=== PATIENT | male | born 1970 | race Caucasian/White ===

== ENCOUNTER 2019-05-11 12:16 | Outpatient (CLI) | payer OTHER, SELFPAY ==
--- NOTE | ~2019-05-11 | XR_ITS ---
EXAMINATION: XR shoulder RT min 2V DATE: 05/11/2019 12:39 INDICATION: Right shoulder pain. TECHNIQUE: 4 views of right shoulder were obtained. COMPARISON: None. FINDINGS: Bone alignment is normal. No fracture. Joint spaces are well maintained. IMPRESSION: 1. Normal right shoulder. Reviewed, dictated and finalized at location A. ONOMY DEPARTMENT CHAIR IMPRESSION: 1. Normal right shoulder.
== END 2019-05-11 12:17 | disposition home or self-care (01) ==
LOC: CHSIMG 12:21
PROVIDERS: PCP Internal Medicine; Visit Provider Internal Medicine
DX: M25.511 Pain in right shoulder (principal)
CPT/HCPCS: 73030

== ENCOUNTER 2019-05-16 16:53 | Outpatient (RCR) | payer OTHER, SELFPAY ==
--- NOTE | 2019-05-16 17:46 | PTOPEVAL ---
Thank you for referring this patient to [facility]. Please review, sign, date and return this plan of care JASE. I agree with and certify that the following plan of care is medically necessary. Referring Physician Date Admitting Provider: Attending Provider: Brandin Donald MD Referring Provider: *PT Outpatient Evaluation Start: 05/16/19 17:04 Freq: Status: Active Protocol: Document 05/16/19 17:04 LIA (Rec: 05/16/19 17:45 [email or web address]) Therapy Assessment Status Assessment Status Assessment Status Evaluation Evaluation Information Problem Diagnosis right shoulder pain Onset 05/06/19 Subjective Information Pt. reports that he woke on Text:As Reported By Patient with right shoulder pain. Family He recalls no specific incident. He describes initial pain in the shoulder blade. He reports that he saw doctor 3-4 days after pain onset. He states that he did take steroids which have helped to reduce pain. He describes no numbness or tingling. He states that reaching overhead is the most difficult task. He reports that pain is eased with keeping his arm close to his body. he reports that his goal is to decrease his right shoulder pain. Diagnostic Tests X-Rays For This Problem Yes Prior Level of Function Activity Level (Last 3 Months) Occupation journeyman electrician pv installer Hand Dominance Right Activity of Daily Living Ability Independent Indoor/Home Mobility Independent Community Mobility Independent Stairs Ability Independent Functional Cognition (Planning, Shopping Independent , Taking Medications) Cooking Yes Cleaning Yes Laundry Yes Shopping Yes Driving Yes Pain Assessment Pain Scale Pain Scale Used Numeric (1 - 10) Self Report Pain Assessment Right Shoulder(s) Reported Pain Level 3 Pain Description Aching Pain Frequency Continuous Current Pain Intensity 3 Lowest Pain Intensity 2 Greatest Pain Intensity 9 Pain Score Pain Score 3: Se
== END 2019-06-09 13:31 | disposition home or self-care (01) ==
LOC: CHSPT 16:53
PROVIDERS: PCP Internal Medicine; Visit Provider Internal Medicine
DX: M25.511 Pain in right shoulder (principal)
CPT/HCPCS: 97014; 97110; 97140; 97161; G0283

== ENCOUNTER 2019-11-18 11:48 | Outpatient (CLI) | payer OTHER, SELFPAY ==
--- NOTE | ~2019-11-18 | XR_ITS ---
XR lumbar spine 2-3V DATE: 11/18/2019 12:12 INDICATION: Lumbosacral radiculopathy for 3 months TECHNIQUE: AP, lateral, coned lateral lumbosacral views COMPARISON: None FINDINGS: There is mild dextroscoliosis of the thoracolumbar spine. Moderate osteopenia is suggested. No fracture or bone destruction. The included T10-L5 pedicles are intact. There is mild to moderate d egenerative disc disease of the lumbar spine, with moderately severe degenerative disc disease at L5- S1. The sacroiliac joints are intact. IMPRESSION: Multilevel degenerative disc disease Moderate osteopenia Reviewed, dictated and finalized at location A.
== END 2019-11-18 11:49 | disposition home or self-care (01) ==
LOC: CHSIMG 11:52
PROVIDERS: PCP Internal Medicine; Visit Provider Internal Medicine
DX: M54.17 Radiculopathy, lumbosacral region (principal)
CPT/HCPCS: 72100

== ENCOUNTER 2019-11-25 09:05 | Outpatient (RCR) | payer OTHER, SELFPAY ==
--- NOTE | 2019-11-25 10:27 | PTOPEVAL ---
Thank you for referring Irseal Teresa to [facility].? The patient is scheduled to be seen for therapy? __2__x/week for __6_ weeks. Please review, sign, date and return this plan of care JASE. I agree with and certify that the following plan of care is medically necessary. Referring Physician Date Admitting Provider: Attending Provider: Brandin Donald MD Referring Provider: *PT Outpatient Evaluation Start: 11/25/19 09:13 Freq: Status: Active Protocol: Document 11/25/19 09:13 LIA (Rec: 11/25/19 09:57 [email or web address]) Therapy Assessment Status Assessment Status Assessment Status Evaluation Evaluation Information Problem Diagnosis low back pain Onset 08/22/19 Additional Evaluation Detail Oswestry 58% limitation Subjective Information Pt. reports long hx of on/off Query Text:As Reported By Patient/ back pain. He states that he Family had a bout that began with pain in the leg, around August. He describes current pain at the left buttock and into the left calf. He reports that he is starting to have trouble with sleeping at night. 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 He states that his job has changed and states that he has been doing more computer work. He attempted a steroid pack, with very little improvement. He states that he has not been very active as of recently due to pain. He reports that his goal is to reduce his low back pain. Diagnostic Tests X-Rays For This Problem Yes Prior Level of Function Activity Level (Last 3 Months) Occupation electrician helper powerhouse Hand Dominance Right Activity of Daily Living Ability Independent Indoor/Home Mobility Independent Community Mobility Independent Stairs Ability Independent Functional Cognition (Planning, Shopping Independent , Taking Medications) Cooking Yes Cleaning Yes Laundry Yes Shopping Yes Driving Yes Pain Assessment Pain Scale Pain Scale Used
== END 2020-01-06 10:11 | disposition home or self-care (01) ==
LOC: CHSPT 09:05
PROVIDERS: PCP Internal Medicine; Visit Provider Internal Medicine
DX: M54.5 Low back pain (principal)
CPT/HCPCS: 97014; 97110; 97161; G0283

== ENCOUNTER → 2019-12-16 14:49 | Outpatient (CLI) | payer OTHER, SELFPAY ==
--- NOTE | ~2019-12-16 | MR_ITS ---
EXAMINATION: MR lumbar spine wo con EXAM DATE: 12/16/2019 15:36 INDICATION: Low back pain radiating down left leg. TECHNIQUE: Multi-sequential, multiplanar MR images of the lumbar spine were obtained without contrast . Sagittal T1, T2, T2 fat saturation images. Axial T2 weighted images. There is no prior study for comparison. FINDINGS: There is mild lumbar levoscoliosis. Moderate disc disease at L5-S1, mild to moderate at L4- 5 and mild at L3-4. The vertebral bodies are aligned in the AP dimension. Endplate degenerative sig nal changes L5-S1. The vertebral body marrow is otherwise normal in signal intensity. The conus medul cliff terminates at the T12-L1 level and has normal signal intensity and morphology. Paraspinal soft tissue is unremarkable. Level by level evaluation: T12-L1: Disc does not extend beyond the endplate margin. Facet arthropathy: Mild. Neural foraminal stenosis: No stenosis. Central canal stenosis: No stenosis. L1-L2: Disc does not extend beyond the endplate margin. Facet arthropathy: Mild. Neural foraminal stenosis: Mild left. Central canal stenosis: No stenosis. L2-L3: Disc does not extend beyond the endplate margin. Facet arthropathy: Mild. Neural foraminal stenosis: No stenosis. Central canal stenosis: No stenosis. L3-L4: There is a mild diffuse disc bulge. Facet arthropathy: Mild. Neural foraminal stenosis: Mild to moderate right. Central canal stenosis: Minimal. L4-L5: There is a mild to moderate diffuse disc bulge, with superimposed moderate-sized left central protrusion causing mass effect on traversing left L5 nerve root in the lateral recess. Facet arthropathy: Mild . Neural foraminal stenosis: Mild to moderate right, mild left. Central canal stenosis: Mild to moderate, disproportionately left lateral recess. L5-S1: There is a mild to moderate diffuse disc bulge. Facet arthropathy: Mild. Neural foraminal stenosis: Mild to moderate right, mild left. Central canal stenosis: Mild. IMPRESSION: 1. L4-5 left central protrusion causing mass effect on traversing L5 nerve root. Correlate clinicall y for muscle weakness of great toe extension and sensory change of the medial foot and great toe. 2. Moderate disc disease at L5-S1. 3. Otherwise mild lumbar spondylosis. Reviewed, dictated and finalized at location G. IMPRESSION: 1. L4-5 left central protrusion causing mass effect on traversing L5 nerve alpa t. Correlate clinically for muscle weakness of great toe extension and sensory change of the medial foot and great toe. 2. Moderate disc disease at L5-S1. 3. Otherwise mild lumbar spondylosis.
== END ==
PROVIDERS: PCP Internal Medicine; Visit Provider Internal Medicine
DX: M54.5 Low back pain (principal); M51.87 Other intervertebral disc disorders, lumbosacral region; M47.26 Other spondylosis with radiculopathy, lumbar region
CPT/HCPCS: 72148

== ENCOUNTER 2021-11-29 10:31 | Outpatient (CLI) | payer BC, SELFPAY ==
[2021-11-29 10:47] LABS: Hematocrit 42.8 % (40.0-54.0); Hemoglobin 14.8 g/dL (14.0-18.0); Mean Corpuscular HGB Conc 34.6 g/dL (32.0-36.0); Mean Corpuscular Hemoglobin 31.4 pg (27.0-31.0); Mean Corpuscular Volume 90.9 fL (78.0-102.0); Mean Platelet Volume 9.4 fl (8.7-11.0); Platelet Count Result 223 K/mm3 (150-420); Red Blood Count 4.71 M/mm3 (4.70-6.10); Red Cell Distribution Width 11.9 % (11.6-14.4); White Blood Count 3.7 K/mm3 (4.8-10.8)
[2021-11-29 10:49] LABS: Add Urine Microscopic? NO; Appearance Urine Clear (Clear); Bilirubin Urine Negative (Negative); Blood Urine Negative (Negative); Color Urine Light Yellow (Yellow); Glucose Urine UA Negative (Negative); Ketones Urine Negative (Negative); Leukocyte Esterase Ur Negative (Negative); Nitrate Urine Negative (Negative); Protein Urine Negative (Negative); Specific Grav Ur 1.025 (1.010-1.020); Urobilinogen Urine 0.2 mg/dL (0.2-1.0)
[2021-11-29 10:57] LABS: Hemoglobin A1C 5.6 % (<5.7)
[2021-11-29 11:08] LABS: Band Neutrophils Percent 0 % (0-6); Basophils Absolute Manual 0.07 K/mm3 (0-0.1); Basophils Percent Manual 2 % (0-1); Eosinophils Absolute Manual 0.07 K/mm3 (0.02-0.5); Eosinophils Percent Manual 2 % (1-6); Lymphocytes Absolute Manual 1.11 K/mm3 (1.1-4.5); Lymphocytes Percent Manual 30 % (18-44); Monocytes Absolute Manual 0.25 K/mm3 (0.1-0.90); Monocytes Percent Manual 7 % (3-9); Neutrophils Absolute Manual 2.18 K/mm3 (1.3-6.7); Neutrophils Percent Manual 59 % (46-73); Total Cells Counted 100
[2021-11-29 11:09] LABS: Platelet Estimate Adequate (Adequate)
[2021-11-29 11:14] LABS: Alanine Aminotransferase 68 U/L (16-63); Albumin Level 3.9 g/dL (3.4-5.0); Alkaline Phosphatase 58 U/L (46-116); Anion Gap 7 mmol/L (8-16); Aspartate Amino Transferase 35 U/L (15-37); Bilirubin,Total 0.4 mg/dL (0.00-1.00); Blood Urea Nitrogen 15 mg/dL (7-18); Calcium 8.7 mg/dL (8.5-10.1); Carbon Dioxide 30 mmol/L (21-32); Chloride 103 mmol/L (98-108); Cholesterol 174 mg/dL (0-200); Estimated Glomerular Filt Rate > 60; Glucose 107 mg/dL (70-99); HDL Direct 40 mg/dL (40-60); LDL Cholesterol Calculated 104 mg/dL (<130); Osmolality Calculated 290 mOsm/kg (285-295); Potassium 4.5 mmol/L (3.5-5.1); Prostate Specific Antigen 0.7 ng/mL (< OR = 4.0); Sodium 140 mmol/L (136-145); Total Protein 7.3 g/dL (6.4-8.2); Triglycerides 149 mg/dL (0-150)
[2021-12-01 17:50] LABS: Hepatitis A Antibody IgM Nonreactive; Hepatitis B Core Antibody Nonreactive (Nonreactive); Hepatitis B Surface Antigen Nonreactive (Nonreactive); Hepatitis C Signal to Cutoff 0.02 ratio (<1.00); Hepatitis C Virus Antibody Nonreactive (Nonreactive)
== END 2021-11-29 10:32 | disposition home or self-care (01) ==
LOC: CHSLAB 10:35
PROVIDERS: PCP Internal Medicine; Visit Provider Internal Medicine
DX: Z00.00 Encounter for general adult medical examination without abnormal findings (principal); Z12.5 Encounter for screening for malignant neoplasm of prostate; R74.01 Elevation of levels of liver transaminase levels
CPT/HCPCS: 36415; 80053; 80061; 80074; 81003; 83036; 84153; 84443; 85025; G0103

== ENCOUNTER 2021-12-06 08:13 | Outpatient (CLI) | payer BC, SELFPAY ==
--- NOTE | ~2021-12-06 | US_ITS ---
EXAMINATION: US right upper quadrant DATE: 12/06/2021 09:55 INDICATION: Abnormal liver enzymes TECHNIQUE: Multiple grayscale and Doppler ultrasound images of the abdomen were obtained. COMPARISON: None available FINDINGS: Bowel gas obscures visualization of the pancreas. The liver demonstrates increased echogeni city, heterogenous echotexture, and decreased through transmission. No surface nodularity. Normal hep atopetal flow in the main portal vein. The gallbladder is normal with no abnormal wall thickening, pe richolecystic fluid or stones. The normal common bile duct measures 4 mm. IMPRESSION: 1. Diffuse hepatic steatosis Reviewed, dictated and finalized at location A.
== END 2021-12-06 08:14 | disposition home or self-care (01) ==
LOC: CHSIMG 08:15
PROVIDERS: PCP Internal Medicine; Visit Provider Internal Medicine
DX: R94.5 Abnormal results of liver function studies (principal)
CPT/HCPCS: 76705

== ENCOUNTER 2023-04-24 07:41 | Outpatient (CLI) | payer BC, SELFPAY ==
[2023-04-24 07:57] LABS: Hemoglobin 15.1 g/dL (14.0-18.0); Mean Corpuscular HGB Conc 33.6 g/dL (32.0-36.0); Mean Corpuscular Hemoglobin 30.4 pg (27.0-31.0); Mean Corpuscular Volume 90.5 fL (78.0-102.0); Mean Platelet Volume 9.1 fl (8.7-11.0); Platelet Count Result 281 K/mm3 (150-420); Red Blood Count 4.97 M/mm3 (4.70-6.10); Red Cell Distribution Width 11.9 % (11.6-14.4); White Blood Count 3.4 K/mm3 (4.8-10.8)
[2023-04-24 07:58] LABS: Appearance Urine Clear (Clear); Bilirubin Urine Negative (Negative); Blood Urine Negative (Negative); Color Urine Light Yellow (Yellow); Glucose Urine UA Negative (Negative); Ketones Urine Negative (Negative); Leukocyte Esterase Ur Negative (Negative); Nitrate Urine Negative (Negative); Protein Urine Negative (Negative); Specific Grav Ur 1.015 (1.010-1.020); Urobilinogen Urine 0.2 mg/dL (0.2-1.0); pH Urine 6.5 (5.0-8.0)
[2023-04-24 08:38] LABS: Add Urine Microscopic? NO
[2023-04-24 08:54] LABS: Alanine Aminotransferase 62 U/L (16-63); Albumin Level 3.8 g/dL (3.4-5.0); Alkaline Phosphatase 64 U/L (46-116); Anion Gap 8 mmol/L (8-16); Aspartate Amino Transferase 32 U/L (15-37); Bilirubin,Total 0.4 mg/dL (0.00-1.00); Blood Urea Nitrogen 16 mg/dL (7-18); Calcium 8.8 mg/dL (8.5-10.1); Carbon Dioxide 31 mmol/L (21-32); Chloride 102 mmol/L (98-108); Cholesterol 194 mg/dL (0-200); Estimated Glomerular Filt Rate > 60; Glucose 122 mg/dL (70-99); HDL Direct 38 mg/dL (40-60); LDL Cholesterol Calculated 129 mg/dL (<130); Osmolality Calculated 294 mOsm/kg (285-295); Potassium 4.3 mmol/L (3.5-5.1); Prostate Specific Antigen 0.4 ng/mL (< OR = 4.0); Sodium 141 mmol/L (136-145); Thyroid Stimulating Hormone 1.29 uIU/mL (0.36-3.74); Total Protein 7.2 g/dL (6.4-8.2); Triglycerides 133 mg/dL (0-150); Uric Acid 7.9 mg/dL (3.5-7.2)
[2023-04-24 09:55] LABS: Total Cells Counted 100
[2023-04-24 09:56] LABS: Band Neutrophils Percent 0 % (0-6); Basophils Percent Manual 3 % (0-1); Eosinophils Percent Manual 3 % (1-6); Lymphocytes Absolute Manual 1.05 K/mm3 (1.1-4.5); Lymphocytes Percent Manual 31 % (18-44); Monocytes Percent Manual 6 % (3-9); Neutrophils Absolute Manual 1.93 K/mm3 (1.3-6.7); Neutrophils Percent Manual 57 % (46-73); Platelet Estimate Adequate (Adequate)
== END 2023-04-24 07:42 | disposition home or self-care (01) ==
LOC: CHSLAB 07:43
PROVIDERS: PCP Internal Medicine; Visit Provider Internal Medicine
DX: Z00.00 Encounter for general adult medical examination without abnormal findings (principal); M10.9 Gout, unspecified; R73.09 Other abnormal glucose
CPT/HCPCS: 36415; 80053; 80061; 81003; 84153; 84443; 84550; 85025; G0103

== ENCOUNTER 2023-05-22 14:18 | Outpatient (CLI) | payer BC, SELFPAY ==
--- NOTE | ~2023-05-22 | XR_ITS ---
EXAMINATION: XR foot LT min 3V DATE: 05/22/2023 14:36 INDICATION: Pain and swelling at the left first metatarsophalangeal joint TECHNIQUE: Dorsoplantar, two oblique and lateral views of the left foot were obtained. COMPARISON: None. FINDINGS: Mild hallux valgus. Alignment is otherwise normal. Again seen is screw fixation likely for old fractu re of the medial malleolus. No acute fracture. Likely bunion with prominent soft tissue swelling over lying the medial head of the first metatarsal where there are mild hypertrophic changes. Mild osteoar thritis of the first metatarsophalangeal joint. Less severe minimal to mild osteoarthritis at a few o f the tarsal metatarsal and interphalangeal joints. IMPRESSION: 1. Hallux valgus with likely bunion with prominent soft tissue swelling overlying the head of the fir st metatarsal where there are mild hypertrophic changes. 2. 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 Reviewed, dictated and finalized at location B. IMPRESSION: 1. Hallux valgus with likely bunion with prominent soft tissue swelling overlyi ng the head of the first metatarsal where there are mild hypertrophic changes. 2. 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
== END 2023-05-22 14:19 | disposition home or self-care (01) ==
LOC: CHSIMG 14:21
PROVIDERS: PCP Internal Medicine; Visit Provider Internal Medicine
DX: M25.572 Pain in left ankle and joints of left foot (principal); M20.12 Hallux valgus (acquired), left foot; M19.072 Primary osteoarthritis, left ankle and foot
CPT/HCPCS: 73630

== ENCOUNTER 2023-05-23 07:34 | Outpatient (CLI) | payer BC, SELFPAY ==
[2023-05-23 10:05] LABS: Glucose 124 mg/dL (70-99)
== END 2023-05-23 07:35 | disposition home or self-care (01) ==
PROVIDERS: PCP Internal Medicine; Visit Provider Internal Medicine
DX: R73.09 Other abnormal glucose (principal)
CPT/HCPCS: 36415; 82947; 83036

== ENCOUNTER 2023-11-21 08:13 | Outpatient (CLI) | payer BC, SELFPAY ==
[2023-11-21 08:31] LABS: Hematocrit 41.2 % (40.0-54.0); Hemoglobin 14.4 g/dL (14.0-18.0); Mean Corpuscular Hemoglobin 31.5 pg (27.0-31.0); Mean Corpuscular Volume 90.2 fL (78.0-102.0); Mean Platelet Volume 9.4 fl (8.7-11.0); Platelet Count Result 206 K/mm3 (150-420); Red Blood Count 4.57 M/mm3 (4.70-6.10); Red Cell Distribution Width 12.1 % (11.6-14.4); White Blood Count 3.6 K/mm3 (4.8-10.8)
[2023-11-21 08:42] LABS: Hemoglobin A1C 5.5 % (<5.7)
[2023-11-21 09:05] LABS: Band Neutrophils Percent 0 % (0-6); Basophils Absolute Manual 0.03 K/mm3 (0-0.1); Basophils Percent Manual 1 % (0-1); Eosinophils Absolute Manual 0.18 K/mm3 (0.02-0.50); Eosinophils Percent Manual 5 % (1-6); Lymphocytes Absolute Manual 0.86 K/mm3 (1.1-4.5); Lymphocytes Percent Manual 24 % (18-44); Monocytes Absolute Manual 0.32 K/mm3 (0.1-0.90); Monocytes Percent Manual 9 % (3-9); Neutrophils Absolute Manual 2.19 K/mm3 (1.3-6.7); Neutrophils Percent Manual 61 % (46-73); Platelet Estimate Adequate (Adequate); Total Cells Counted 100
[2023-11-21 09:23] LABS: Alanine Aminotransferase 31 U/L (16-63); Albumin Level 3.9 g/dL (3.4-5.0); Alkaline Phosphatase 54 U/L (46-116); Anion Gap 3 mmol/L (4-12); Aspartate Amino Transferase 25 U/L (15-37); Bilirubin,Total 0.4 mg/dL (0.00-1.00); Blood Urea Nitrogen 14 mg/dL (7-18); Calcium 9.1 mg/dL (8.5-10.1); Carbon Dioxide 34 mmol/L (21-32); Chloride 105 mmol/L (98-108); Estimated Glomerular Filt Rate > 60; Glucose 118 mg/dL (70-99); Osmolality Calculated 295 mOsm/kg (285-295); Potassium 4.5 mmol/L (3.5-5.1); Sodium 142 mmol/L (136-145); Total Protein 7.2 g/dL (6.4-8.2)
== END 2023-11-21 08:14 | disposition home or self-care (01) ==
LOC: CHSLAB 08:15
PROVIDERS: PCP Internal Medicine; Visit Provider Internal Medicine
DX: D72.819 Decreased white blood cell count, unspecified (principal); R73.01 Impaired fasting glucose; M10.9 Gout, unspecified
CPT/HCPCS: 36415; 80053; 83036; 84550; 85025

== ENCOUNTER 2024-07-01 08:04 | Outpatient (CLI) | payer BC, SELFPAY ==
--- OUTSIDE RECORDS SUMMARY | 2024-07-01 08:10 | XMS_ITS | CONTINUITY OF CARE DOCUMENT ---
Author Name rupali zapien Address Unknown Organization [facility] Address [address] [place] [address] Phone [phone] Care Team Providers Care Oil Expeller Name Role Phone Vipin PALACIOS, Peter Unavailable Peter Lew MD Unavailable VALERIY PALACIOS, LIBIA Unavailable [phone] PROBLEMS Condition Status Date Provider Notes Cardiovascular screening active Kimmy Conn INS[employer]ANCE PROVID[employer] Payer name Policy type / Coverage type [place] red green party ID [facility] [id number] TREATMENT PLAN Date Name CT, Coronary Calcium Score HISTORY OF PROCEDURES Procedure Date Procedure Name Provider Procedure Notes S tatus CT- Coronary CA score Peter Lew MD completed
--- OUTSIDE RECORDS SUMMARY | 2024-07-01 08:11 | XMS_ITS | Patient Health Record ---
Author Organization [facility] [place] Address [address] [address] Care Team Providers Care Director Of Workforce Development Name Role Phone Sebas Morris Unavailable [phone] REASON FOR REFERRAL No Information MEDICATIONS Medication SIG (Take, Route, Fr equency, Duration) Notes Start Date End Date Status Gabapentin 300 MG 1 capsule Orally Onc e a day for 30 day(s) 01/13/2020 Active SOCIAL HISTORY Tobacco Use: Social History Observation Description Date Details (start date - stop date) Never Smoker NA - NA Sex Assigned At : Social History Observation Description Sex Assigned At Unknown Tobacco Use/Smoking Question Answer Notes Are you a nonsmoker PROBLEMS Problem Type ICD Code Onset Dates Problem Status W/U Status Risk SNOMED Code Notes Problem Other chronic pain (G89.29) Active confirmed 77994494 Problem Spondylosis without myelopathy or radiculopathy, lumbosacral region (M47.817) Active confirmed 43813541 Problem Radiculopathy, lumbosacral region (M54.17) Active confirmed 2977971 Problem Lumbago with sciatica, left side (M54.42) Active confirmed [id number] PLAN OF TREATMENT No Information MEDICAL (GENERAL) HISTORY Medical History History ICD Code nerve damage Surgical History Surgery Date(Month/Year) Cyst removed 90 Ankle 93 Knee 08
[2024-07-01 08:17] LABS: Hematocrit 43.8 % (40.0-54.0); Hemoglobin 14.6 g/dL (14.0-18.0); Mean Corpuscular HGB Conc 33.3 g/dL (32-36); Mean Corpuscular Hemoglobin 30.2 pg (27.0-31.0); Mean Corpuscular Volume 90.7 fL (78.0-102.0); Mean Platelet Volume 9.3 fl (8.7-11.0); Platelet Count Result 215 K/mm3 (150-420); Red Blood Count 4.83 M/mm3 (4.70-6.10); Red Cell Distribution Width 12.2 % (11.6-14.4); White Blood Count 3.5 K/mm3 (4.8-10.8)
[2024-07-01 08:18] LABS: Add Urine Microscopic? NO; Appearance Urine Clear (Clear); Bilirubin Urine Negative (Negative); Blood Urine Negative (Negative); Color Urine Light Yellow (Yellow); Glucose Urine UA Negative (Negative); Ketones Urine Negative (Negative); Leukocyte Esterase Ur Negative (Negative); Nitrate Urine Negative (Negative); Protein Urine Negative (Negative); Urobilinogen Urine 0.2 mg/dL (0.2-1.0)
[2024-07-01 09:31] LABS: Alanine Aminotransferase 38 U/L (16-63); Albumin Level 3.9 g/dL (3.4-5.0); Alkaline Phosphatase 65 U/L (46-116); Anion Gap 8 mmol/L (4-12); Aspartate Amino Transferase 26 U/L (15-37); Bilirubin,Total 0.4 mg/dL (0.00-1.00); Blood Urea Nitrogen 14 mg/dL (7-18); Calcium 9.1 mg/dL (8.5-10.1); Carbon Dioxide 30 mmol/L (21-32); Chloride 105 mmol/L (98-108); Cholesterol 256 mg/dL (0-200); Estimated Glomerular Filt Rate > 60; Glucose 111 mg/dL (70-99); HDL Direct 50 mg/dL (40-60); LDL Cholesterol Calculated 182 mg/dL (<130); Osmolality Calculated 297 mOsm/kg (285-295); Potassium 4.7 mmol/L (3.5-5.1); Prostate Specific Antigen 0.7 ng/mL (< OR = 4.0); Sodium 143 mmol/L (136-145); Total Protein 7.3 g/dL (6.4-8.2); Triglycerides 121 mg/dL (0-150); Uric Acid 8.4 mg/dL (3.5-7.2)
== END 2024-07-01 08:05 | disposition home or self-care (01) ==
PROVIDERS: PCP Internal Medicine; Visit Provider Internal Medicine
DX: Z00.00 Encounter for general adult medical examination without abnormal findings (principal)
CPT/HCPCS: 36415; 80053; 80061; 81003; 84153; 84443; 84550; 85027; G0103